=== PATIENT | female | born 2005 | race Caucasian/White ===

== ENCOUNTER 2025-08-22 21:29 | Emergency (ER) | payer OTHER ==
[~2025-08-22] VITALS: Ht 160 cm; Wt 98.2 kg
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
[2025-08-22 23:00] VITALS: BP 139/77; PULSE 103; RESP 19; TEMP 98.7; O2SAT 97
[2025-08-22] MEDS ORDERED: IBUP-2077 PO (23:06)
[2025-08-22] MEDS ORDERED: CYCL-309 PO (23:06)
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
[2025-08-22] MEDS: CYCLOBENZAPRINE HCL 10 MG TABLET PO ONE (23:33)
== END 2025-08-22 23:45 | disposition home or self-care (01) ==
LOC: EDH 21:29
DX: S16.1XXA Strain of muscle, fascia and tendon at neck level, initial encounter (principal); S29.012A Strain of muscle and tendon of back wall of thorax, initial encounter; Z91.040 Latex allergy status; V89.2XXA Person injured in unspecified motor-vehicle accident, traffic, initial encounter; Y93.89 Activity, other specified; Y92.89 Other specified places as the place of occurrence of the external cause; Y99.8 Other external cause status
CPT/HCPCS: 72040; 72070; 99284